=== PATIENT | female | born 1950 ===

== ENCOUNTER → 2022-02-01 | Outpatient (CLI) | payer MEDICARE | LOC: CT 01-30 08:30 | DX: R22.1 Localized swelling, mass and lump, neck (principal) | CPT/HCPCS: 36415; 70491; 82565; 84520; Q9967 ==

== ENCOUNTER → 2022-02-23 | Outpatient (CLI) | payer MEDICARE | LOC: MRI 13:39 | DX: R22.0 Localized swelling, mass and lump, head (principal) | CPT/HCPCS: 36415; 70543; 82565; 84520; A9577 ==